=== PATIENT | male | born 1965 | race African-American/Black ===

== ENCOUNTER 2020-12-12 14:45 | Emergency (ER) | payer MEDICAID, OTHER ==
[~2020-12-12] VITALS: Ht 185.4 cm; Wt 72.6 kg
[2020-12-12 15:47] LABS: Basophils # (auto) 0 10 ^3/uL (0-0.2); Basophils % (auto) 0.6 % (0.0-2.0); Eosinophils # (auto) 0 10 ^3/uL (0-0.8); Eosinophils % (auto) 0.6 % (0.0-7.0); Hematocrit 35.6 % (41.0-53.0); Hemoglobin 11.6 g/dL (13.5-17.5); Lymphocytes # (auto) 0.5 10 ^3/uL (0.4-5.4); Lymphocytes % (auto) 6.6 % (10.0-50.0); Mean Corpuscular Hemoglobin 31.6 pg (28.0-32.0); Mean Corpuscular Hgb Conc. 32.5 g/dL (32.0-36.0); Mean Corpuscular Volume 97.2 fL (80.0-100.0); Monocytes # (auto) 0.8 10 ^3/uL (0-1.3); Monocytes % (auto) 10.6 % (0.0-12.0); Neutrophils % (auto) 81.6 % (37.0-80.0); Nucleated Red Blood Cells % 0.4 %; Red Blood Cells 3.66 10^6/uL (4.5-5.90); Red Cell Distribution Width 17.4 % (11.8-14.3); White Blood Cell 7.4 10^3/uL (4.4-10.8)
[2020-12-12] MEDS ORDERED: SODIUM CHLORIDE 0.9% 1,000 ML IV ONE (16:15)
[2020-12-12] MEDS ORDERED: ASPirin 81 mg TAB PO ONE (16:15)
[2020-12-12 16:16] LABS: Albumin 2.3 g/dL (3.4-5.0); BUN/Creatinine Ratio 13.8; Calcium 7.9 mg/dL (8.5-10.1); Potassium 3.5 mmol/L (3.5-5.1)
[2020-12-12 16:19] LABS: Bilirubin, Total 0.4 mg/dL (0.2-1.0); Total Protein 5.6 g/dL (6.4-8.2)
[2020-12-12] MEDS ORDERED: FUROSEMIDE 40 MG/4 ML VIAL IV ONE (16:45)
[2020-12-12] MEDS ORDERED: MORPHINE SULFATE INJECTION 2 MG/ML SYRG IV ONE (16:45)
[2020-12-12] MEDS: AZITHROMYCIN 500MG/ 250ML 250 ML IV ONE ×2 (16:45→19:01)
[2020-12-12] MEDS ORDERED: cefTRIAXone 1GM/50ML D5W 50 ML IV ONE (16:45)
[2020-12-12] MEDS ORDERED: ONDANSETRON HCL 4 MG/2 ML VIAL IV ONE ×2 (16:45→22:30)
[2020-12-12] MEDS ORDERED: SPIRONOLACTONE 25 MG TAB PO ONE (16:45)
[2020-12-12 17:42] LABS: INR 0.9 (0.9-1.15); Partial Thromboplastin Time 28.5 sec (23.6-33.0)
[2020-12-12] MEDS ORDERED: IOHEXOL 350 MG/ML 100ML IJ ONE (18:25)
[2020-12-12 22:24] VITALS: BP 120/72
[2020-12-12] MEDS ORDERED: HYDROcodone-ACET 5/325MG TAB PO ONE (22:45)
== END 2020-12-13 00:15 | disposition home or self-care (01) ==
LOC: ER 14:45
DX: I50.9 Heart failure, unspecified (principal); R07.89 Other chest pain; J18.9 Pneumonia, unspecified organism; E43 Unspecified severe protein-calorie malnutrition; R79.1 Abnormal coagulation profile; K21.9 Gastro-esophageal reflux disease without esophagitis; F17.210 Nicotine dependence, cigarettes, uncomplicated; Z68.21 Body mass index [BMI] 21.0-21.9, adult; Z20.822 Contact with and (suspected) exposure to COVID-19
CPT/HCPCS: 36415; 71046; 71275; 80053; 83735; 83880; 84443; 84484; 85025; 85379; 85610; 85730; 87040; 87426; 93005; 96365; 96366; 96368; 96375; 96376; 99285; J0456; J0696; J1940; J2270; J2405; Q9967

== ENCOUNTER 2020-12-16 12:09 | Emergency (ER) | payer MEDICAID ==
[~2020-12-16] VITALS: Ht 152.4 cm; Wt 78.5 kg
[2020-12-16 12:14] VITALS: BP 124/80
[2020-12-16 14:07] LABS: Basophils # (auto) 0 10 ^3/uL (0-0.2); Basophils % (auto) 0.8 % (0.0-2.0); Eosinophils # (auto) 0.1 10 ^3/uL (0-0.8); Hematocrit 32.1 % (41.0-53.0); Hemoglobin 10.5 g/dL (13.5-17.5); Lymphocytes # (auto) 0.7 10 ^3/uL (0.4-5.4); Mean Corpuscular Hemoglobin 31.4 pg (28.0-32.0); Mean Corpuscular Hgb Conc. 32.9 g/dL (32.0-36.0); Mean Corpuscular Volume 95.7 fL (80.0-100.0); Monocytes # (auto) 0.3 10 ^3/uL (0-1.3); Monocytes % (auto) 8.2 % (0.0-12.0); Neutrophils # (auto) 2.5 10 ^3/uL (1.6-8.6); Nucleated Red Blood Cells % 0.9 %; Red Blood Cells 3.35 10^6/uL (4.5-5.90); Red Cell Distribution Width 17.2 % (11.8-14.3); White Blood Cell 3.7 10^3/uL (4.4-10.8)
[2020-12-16 14:28] LABS: Albumin 2.4 g/dL (3.4-5.0); Calcium 7.8 mg/dL (8.5-10.1); Potassium 3.3 mmol/L (3.5-5.1)
[2020-12-16 14:38] LABS: BUN/Creatinine Ratio 9.9; Bilirubin, Total 0.2 mg/dL (0.2-1.0); Total Protein 5.8 g/dL (6.4-8.2)
[2020-12-16] MEDS ORDERED: AZIT1POW12 PO (15:28)
[2020-12-16] MEDS ORDERED: ACE3T PO (15:28)
== END 2020-12-16 15:46 | disposition left against medical advice (07) ==
LOC: ER 12:09
DX: R05.9 Cough, unspecified (principal); R09.81 Nasal congestion; K21.9 Gastro-esophageal reflux disease without esophagitis; F17.210 Nicotine dependence, cigarettes, uncomplicated; Z79.2 Long term (current) use of antibiotics; Z79.899 Other long term (current) drug therapy
CPT/HCPCS: 36415; 71046; 80053; 84484; 85025; 93005